=== PATIENT | female | born 1980 | race Two or more races ===

== ENCOUNTER → 2017-03-31 | Emergency (ER) | payer OTHER ==
[~2017-03-31] VITALS: Ht 144.8 cm; Wt 48.1 kg
[~2017-03-31] MED LIST: IBUPROFEN800 MG PO; NORFLEX100MG PO; SYNTHROID50 MCG
== END | disposition home or self-care (01) ==
LOC: ER 13:37
DX: M54.5 Low back pain (principal); R21 Rash and other nonspecific skin eruption

== ENCOUNTER 2018-02-02 14:17 | Emergency (ER) | payer OTHER ==
[~2018-02-02] VITALS: Ht 152.4 cm; Wt 59.0 kg
== END 2018-02-02 16:53 | disposition home or self-care (01) ==
LOC: ER 14:17
DX: M54.89 Other dorsalgia (principal); R21 Rash and other nonspecific skin eruption